=== PATIENT | female | born 1950 | race Caucasian/White ===

== ENCOUNTER → 2023-02-05 | Outpatient (CLI) | payer MEDICARE, OTHER, SELFPAY ==
--- NOTE | 2023-02-05 13:00 | ECHOCS_ITS ---
Reason For Study: ATRIAL FIBRILLATION Procedure This was a 2D Doppler, Color Flow transthoracic echocardiogram. The study was technically difficult. Contrast injection was performed. Exam performed in department. Left Ventricle Normal size and thickness. The left ventricular ejection fraction is 60 %. Stage 2 diastolic dysfunction. Right Ventricle Moderately dilated right ventricle. Severe global right ventricular systolic dysfunction. Atria There is severe biatrial dilatation. Mitral Valve Trivial mitral valve insufficiency. Tricuspid Valve Right ventricular systolic pressure estimated to be 80 mmHg. Severe pulmonary hypertension. Moderate (2+) tricuspid valve insufficiency. Aortic Valve The aortic valve is not well visualized in the short axis view. Mean aortic valve gradient 7.9 mmHg. Pulmonic Valve The pulmonic valve is not well visualized. Great Vessels Normal sized aortic root. Pericardium/Pleural No pericardial effusion. Medication 22 gauge I.V. with prn adaptor inserted into left arm. Diluted definity 2ml given slow IV push to enhance endocardial definition. MMode/2D Measurements & Calculations RVDd: 3.8 cm LVOT diam: 1.9 cm Ao root diam: 2.7 cm LVOT area: 2.9 cm2 LAV(MOD-bp): 44.4 ml LVAd ap4: 26.0 cm2 LVAd ap2: 25.3 cm2 LAV(MOD-bp) Indexed: 21.5 ml/m2 LVLd ap4: 7.6 cm LVLd ap2: 7.3 cm LAV(MOD-sp2): 42.0 ml EDV(MOD-sp4): 75.0 ml EDV(MOD-sp2): 73.4 ml LAV(MOD-sp4): 47.3 ml EDV(sp4-el): 75.2 ml EDV(sp2-el): 74.2 ml LVAs ap4: 15.8 cm2 LVAs ap2: 15.5 cm2 LVLs ap4: 7.1 cm LVLs ap2: 6.3 cm ESV(MOD-sp4): 29.8 ml ESV(MOD-sp2): 32.7 ml ESV(sp4-el): 29.9 ml ESV(sp2-el): 32.0 ml EF(MOD-sp4): 60.2 % EF(MOD-sp2): 55.5 % EF(sp4-el): 60.3 % SV(MOD-sp4): 45.2 ml SV(MOD-sp2): 40.7 ml SV(sp4-el): 45.3 ml LA A4 area: 19.5 cm2 LA dimension(2D): 4.2 cm RA A4 area: 16.6 cm2 TAPSE: 1.2 cm Time Measurements MV dec time: 0.21 sec Doppler Measurements & Calculations MV E max oliver: 156.3 cm/sec Lat Peak E' Oliver: 6.2 cm/sec Med Peak E' Oliver: 6.5 cm/sec MV A max oliver: 106.3 cm/sec E/E' lat: 25.4 E/E' med: 23.9 MV E/A: 1.5 MV V2 max: 153.1 cm/sec MV dec slope: 729.1 cm/sec2 Ao V2 max: 185.4 cm/sec MV max P.4 mmHg Ao max P.8 mmHg MV V2 mean: 94.9 cm/sec Ao V2 mean: 134.6 cm/sec MV mean P.0 mmHg Ao mean P.9 mmHg MV V2 VTI: 37.0 cm Ao V2 VTI: 38.7 cm MVA(VTI): 1.2 cm2 AV (velocity ratio): 0.40 TRAVIS(I,D): 1.2 cm2 TRAVIS(V,D): 1.1 cm2 LV V1 max: 73.1 cm/sec SV(LVOT): 44.7 ml TV V2 max: 91.6 cm/sec LV V1 max P.1 mmHg TV max P.5 mmHg LV V1 mean P.1 mmHg TV V2 mean: 58.8 cm/sec LV V1 mean: 48.8 cm/sec TV mean P.6 mmHg LV V1 VTI: 15.5 cm PA V2 max: 77.0 cm/sec TR max oliver: 401.0 cm/sec PA max PG (full): 1.1 mmHg TR max P.3 mmHg ECHO/Echo Complete W/ Contrast Interpretation Summary The left ventricular ejection fraction is 60 %. Stage 2 diastolic dysfunction. Moderately dilated right ventricle. Severe global right ventricular systolic dysfunction. Right ventricular systolic pressure estimated to be 80 mmHg. Severe pulmonary hypertension. Moderate (2+) tricuspid valve insufficiency. The study was technically difficult. Ordering Physician: Velia Coats Referring Physician: Velia Coats Performed By: Alexandra Gerard, GARRY
[2023-02-05 13:55] LABS: Anion Gap 6 (5-15); BUN 22 mg/dL (7-18); BUN/Creat Ratio 18.8 RATIO (10-20); Calcium,Total 8.6 mg/dL (8.5-10.1); Chloride 108 mmol/L (98-107); Creatinine, Serum 1.17 mg/dL (0.55-1.02); EST Glomerular Filtration Rate 48 mL/min (>60); Est Glom Filt Rate - Afr Amer 58 mL/min (>60); Glucose 203 mg/dL (74-106); Sodium Level 140 mmol/L (136-145)
== END | disposition home or self-care (01) ==
LOC: CVS 12:51
PROVIDERS: PCP Preventive Medicine Occupational Medicine; Referring Provider Internal Medicine Cardiovascular Disease; Visit Provider Internal Medicine Cardiovascular Disease
DX: G47.33 Obstructive sleep apnea (adult) (pediatric) (principal); Z86.79 Personal history of other diseases of the circulatory system
CPT/HCPCS: 36415; 80048; 93306; Q9957; A4216; C8929